=== PATIENT | female | born 1975 | race African-American/Black ===

== ENCOUNTER 2023-05-24 18:01 | Emergency (ER) | payer SELFPAY ==
[~2023-05-24] VITALS: Ht 165.1 cm; Wt 96.0 kg
[2023-05-24 18:29] VITALS: BP 151/82; PULSE 89; RESP 19; TEMP 98.3; O2SAT 97
[2023-05-24 20:39] LABS: BASOPHILS % 0.7 % (0.0-2.0); EOSINOPHILS % 1.4 % (0.0-5.0); HEMOGLOBIN. 14.1 g/dL (12.0-16.0); LYMPHOCYTES % 32.2 % (20.0-50.0); MEAN CORPUSCULAR HEMOGLOBIN 31.4 pg (28.0-32.0); MEAN CORPUSCULAR HGB CONC 33.6 g/dL (31.0-37.0); MEAN CORPUSCULAR VOLUME 93.6 fL (81.0-99.0); MEAN PLATELET VOLUME 8.4 fl (7.4-10.4); MONOCYTES % 7.2 % (2.0-8.0); NEUTROPHILS % 58.5 % (40.0-76.0); PLATELET 290 x1000/uL (130-400); RED BLOOD CELL COUNT 4.49 mill/uL (4.2-5.4); WHITE BLOOD COUNT 10.9 x1000/uL (4.5-11.0)
[2023-05-24 20:53] LABS: ALANINE AMINOTRANSFERASE 40 IU/L (10-49); ALBUMIN 4.6 g/dL (3.2-4.8); ASPARTATE AMINOTRANSFERASE 35 IU/L (<34); BILIRUBIN TOTAL 0.7 mg/dL (0.1-1.0); CALCIUM 9.3 mg/dL (8.7-10.4); CARBON DIOXIDE 24 mEq/L (21-32); CHLORIDE 107 mEq/L (98-107); CREATININE 0.7 mg/dL (0.6-1.0); GLUCOSE 89 mg/dL (70-105); POTASSIUM 3.7 mEq/L (3.5-5.1); PROTEIN TOTAL 7.6 g/dL (6.0-8.3); SODIUM 137 mEq/L (136-145); UREA NITROGEN BLOOD 8 mg/dL (9-23); URIC ACID 4.4 mg/dL (3.1-7.8)
[2023-05-24] MEDS ORDERED: ACETAMINOPHEN 325MG TABLET PO ONE (22:00)
[2023-05-24] MEDS ORDERED: KETOROLAC 60MG/2ML VIAL IM ONE (22:00)
== END 2023-05-24 22:52 | disposition left against medical advice (07) ==
LOC: ER 18:01
DX: M13.88 Other specified arthritis, other site (principal)
CPT/HCPCS: 36415; 73120; 80053; 84550; 85025; 99284

== ENCOUNTER 2023-05-26 16:24 | Emergency (ER) | payer OTHER ==
[~2023-05-26] VITALS: Ht 165.1 cm; Wt 94.0 kg
[2023-05-26 16:33] VITALS: TEMP 98.4; O2SAT 100
[2023-05-26] MEDS: DEXAMETHASONE 4MG TABLET PO ONE (20:00)
[2023-05-26] MEDS: CEPHALEXIN 250MG CAPSULE PO ONE (20:01)
[2023-05-26] MEDS ORDERED: P50 MT (21:20)
[2023-05-26] MEDS ORDERED: CEPH500C2 MT (21:20)
[2023-05-26 21:48] VITALS: BP 130/82; PULSE 87; RESP 16
== END 2023-05-26 21:49 | disposition home or self-care (01) ==
LOC: ER 16:24
DX: L03.114 Cellulitis of left upper limb (principal)
CPT/HCPCS: 99284; 93971; 73130; J8540